=== PATIENT | female | born 1995 | race Caucasian/White ===

== ENCOUNTER 2016-11-16 23:26 | Emergency (ER) | payer OTHER ==
[~2016-11-16] VITALS: Ht 157.5 cm; Wt 79.0 kg
[2016-11-16 23:34] VITALS: TEMP 37; Ht 157.5 cm; Wt 79.0 kg
[2016-11-16] MEDS ORDERED: CEFTRIAXONE SOD INJ 1 GM ADDVIAL IV STA (23:46)
[2016-11-16] MEDS ORDERED: KETOROLAC TROMETHAMINE 30 MG/ML VIAL IV STA (23:46)
[2016-11-17] MEDS ORDERED: CEPHALEXIN 500MG HOME PACK 1 EA BTL PO ONE
[2016-11-17] MEDS ORDERED: XYLOCAINE 1%/SOD BICARB 20 ML VIAL INFIL ONE
[2016-11-17] MEDS ORDERED: SEPTRA DS HOME PACK 1 EA VIAL PO ONE
[2016-11-17 00:03] LABS: BASO % 0.1 %; BASO ABS # 0.01 K/uL (0-0.2); COMPLETE YES; EOS % 0.6 %; HEMATOCRIT 38.9 % (37-47); IG% 0.2 %; LYMPH % 21.6 %; LYMPH ABS # 2.21 K/uL (1.2-3.4); MEAN CELL VOLUME 93.7 fL (80-100); MEAN CORPUSCULAR HEMOGLOBIN 31.8 pg (25-34); MEAN CORPUSCULAR HGB CONC 33.9 g/dl (32-36); MEAN PLATELET VOLUME 10.6 fL (7.4-10.4); MONO % 5.9 %; NEUT % 71.6 %; PLATELET COUNT 302 K/uL (130-400); RED BLOOD COUNT 4.15 M/uL (4.2-5.4); WHITE BLOOD COUNT 10.24 K/uL (4.8-10.8)
[2016-11-17 00:21] LABS: BUN/CREATININE RATIO 17.8 (10-20); CALCIUM 9.3 mg/dl (8.5-10.1); CREATININE 0.79 mg/dl (0.60-1.20); POTASSIUM 3.8 mmol/L (3.5-5.1)
[2016-11-17] MEDS ORDERED: OXYC1TAB3 PO (00:33)
[2016-11-17] MEDS ORDERED: CEPH500C PO (00:33)
[2016-11-17] MEDS ORDERED: ONDA4TAB10 SL (00:33)
[2016-11-17] MEDS ORDERED: SULF800T23 PO (00:33)
[2016-11-17 00:44] LABS: PREG INTERNAL NEGATIVE QC NEG CLEAR BACKGROUND; PREG INTERNAL POSITIVE QC POS CONTROL LINE
[2016-11-17] MEDS ORDERED: ONDANSETRON HOME PACK 4MG OD TAB PO ONE (00:45)
[2016-11-17 00:54] VITALS: BP 110/64; PULSE 88; O2SAT 100
--- NOTE | 2016-11-17 00:54 | EMERGENCY ROOM VISIT NOTE ---
History First contact with patient: 23:39 Chief Complaint: LEG PAIN,LEG INJURY Stated Complaint: LUMP ON INSIDE OF LEG,SEVERE PAIN History of Present Illness The patient is a 21 year old female who presents to the Emergency Room with complaints of infection to the groin area for the past 2 days. Patient does shave her vaginal area. Patient is as a pain as throbbing, ranging in severity 6 out of 10 worse with palpation. Nothing makes it better. Tetanus is current. Patient does not feel at risk for STIs. Patient denies urinary symptoms, vaginal itching or discharge, abdominal pain, vomiting, fever, chills. No other complaint per patient. No history of abscesses in the past. No IV drug abuse. Review of Systems See HPI for pertinent positives & negatives. A total of 10 systems reviewed and were otherwise negative. Past Medical/Surgical History None Social History Smoking Status: Never Smoker Smokeless Tobacco Use: No Drug Use: none Marital Status: single Occupation Status: [employer] student Current/Historical Medications Scheduled Cephalexin Monohydrate (Keflex), 500 MG PO QID Ondasetron Odt (Zofran Odt), 4 MG SL Q6H Sulfa/Trimethoprim (Bactrim Ds 800MG/160MG), 1 TAB PO BID Scheduled PRN Oxycodone Immediate Rel Tab (Roxicodone Ir), 1-2 TAB PO Q4H PRN for Severe Pain Physical Exam Vital Signs Date Time Temp Pulse Resp B/P Pulse Ox O2 Delivery O2 Flow Rate FiO2 11/16/16 23:34 37.0 83 20 133/86 100 Room Air Physical Exam VITALS: Vitals are noted on the nurse's note and reviewed by myself. Vital signs stable. GENERAL: Pleasant female, in no acute distress, nondiaphoretic, well-developed well-nourished. SKIN: Capillary reflex less than 2 seconds. HEENT: Normocephalic. PERRLA. EOMI. Nares patent. Mucous membranes moist. Neck is supple without nuchal rigidity. HEART: Regular rate and rhythm without murmurs gallops or rubs. LUNGS: Clear to auscultation bilaterally without wheezes, rales or rhonchi. No retractions or accessory muscle use. ABDOMEN: Positive bowel sounds x 4. Normal tympanic percussion. Soft, nontender, without masses or organomegaly. Simms sign negative. No guarding or rebound tenderness. exam: Left symphysis pubis with 5 x 4 cm area that is fluctuant concerning for abscess with surrounding erythema and no active drainage. No Bartholin's abscess. No [place]'s glands abscess trimming inspector present MUSCULOSKELETAL: No gross musculoskeletal defects. No pedal edema. No calf tenderness. NEURO: Patient was alert and oriented to person place and time. Normal sensation to light and sharp touch. No focal neurological deficits. Medical Decision & Procedures Laboratory Results 11/16/16 23:55 Red Blood Count 4.15, Mean Corpuscular Volume 93.7, Mean Corpuscular Hemoglobin 31.8, Mean Corpuscular Hemoglobin Concent 33.9, Mean Platelet Volume 10.6, Neutrophils (%) (Auto) 71.6, Lymphocytes (%) (Auto) 21.6, Monocytes (%) (Auto) 5.9, Eosinophils (%) (Auto) 0.6, Basophils (%) (Auto) 0.1, Neutrophils # (Auto) 7.34, Lymphocytes # (Auto) 2.21, Monocytes # (Auto) 0.60, Eosinophils # (Auto) 0.06, Basophils # (Auto) 0.01 11/16/16 23:55 Test 11/16/16 23:55 White Blood Count 10.24 K/uL (4.8-10.8) Red Blood Count 4.15 M/uL (4.2-5.4) Hemoglobin 13.2 g/dL (12.0-16.0) Hematocrit 38.9 % (37-47) Mean Corpuscular Volume 93.7 fL (80-100) Mean Corpuscular Hemoglobin 31.8 pg (25-34) Mean Corpuscular Hemoglobin Concent 33.9 g/dl (32-36) Platelet Count 302 K/uL (130-400) Mean Platelet Volume 10.6 fL (7.4-10.4) Neutrophils (%) (Auto) 71.6 % Lymphocytes (%) (Auto) 21.6 % Monocytes (%) (Auto) 5.9 % Eosinophils (%) (Auto) 0.6 % Basophils (%) (Auto) 0.1 % Neutrophils # (Auto) 7.34 K/uL (1.4-6.5) Lymphocytes # (Auto) 2.21 K/uL (1.2-3.4) Monocytes # (Auto) 0.60 K/uL (0.11-0.59) Eosinophils # (Auto) 0.06 K/uL (0-0.5) Basophils # (Auto) 0.01 K/uL (0-0.2) RDW Standard Deviation 46.0 fL (36.4-46.3) RDW Coefficient of Variation 13.3 % (11.5-14.5) Immature Granulocyte % (Auto) 0.2 % Immature Granulocyte # (Auto) 0.02 K/uL (0.00-0.02) Anion Gap 10.0 mmol/L (3-11) Est Creatinine Clear Calc Drug Dose 108.7 ml/min Estimated GFR () 123.2 Estimated GFR (Non- 106.3 BUN/Creatinine Ratio 17.8 (10-20) Calcium Level 9.3 mg/dl (8.5-10.1) Human Chorionic Gonadotropin, Qual NEG (NEG) Medications Administered Medications (Trade) Dose Ordered Sig/Danny Route Start Time Stop Time Status Last Admin Dose Admin Ketorolac Tromethamine (Toradol Inj) 30 mg NOW STAT IV 11/16/16 23:46 11/16/16 23:48 DC 11/17/16 00:03 30 MG Ceftriaxone Sodium (Rocephin Inj) 1 gm NOW STAT IV 11/16/16 23:46 11/16/16 23:48 DC 11/17/16 00:02 1 GM Procedure Incision & Drainage Indication: Abscess. Location: pubic region Verbal consent was obtained after the risks and benefits were explained, including but not limited to bleeding, scarring, infection, pain, and bone/joint /nerve damage. At this time, the risks of the procedure are less than the risks of NOT performing the procedure. A time out was taken and the correct patient and site identified. The skin was prepped with betadine and a sterile field set. The wound was anesthetized with 10 ml of 1% lidocaine without epinephrine. The abscess cavity was entered with a number 11 blade and copious purulent material expressed. Copious irrigation was performed using normal saline. The wound was explored for foreign bodies and none found. Debridement was not performed. Packing placed and a sterile dressing applied. Detailed wound care instructions and signs and symptoms of worsening infection reviewed with the patient. No complications and the patient tolerated the procedure well. ED Course Prior records reviewed and summarized as above. Triage Nursing notes reviewed. The patient's history was concerning for swelling and redness of the skin. Differential diagnosis: Etiologies such as cellulitis, abscess, MRSA infection, DVT, necrotizing fasciitis, dermatitis, drug eruption, as well as others were entertained.. Physical examination: The physical examination was consistent with cellulitis ER treatment provided: I&D as above, Rocephin, Keflex, Bactrim, Zofran, OxyIR On reassessment the patient felt better. Diagnostics interpreted by me: The labs revealed no leukocytosis. Wound culture pending. Mild hyperglycemia This appears to be abscess with surrounding cellulitis. Patient was started on antibiotics. I&D as above. She was advised wound repacking in 2 days. She is advised to take medications as directed. She is advised return to the immediate for spreading infection, fevers, vomiting, worsening signs or symptoms or as needed. Tetanus is current. She does not feel at risk for any STIs. By the evaluation outlined above emergent etiologies such as necrotizing fasciitis, DVT, as well as others were deemed relatively unlikely. The pt informed about the findings as listed above. All questions were answered and pleased with the treatment. Return instructions were outlined and the patient was discharged in stable condition. Outpatient prescription management: bob BENITEZ Referral: The patient was referred back to primary care physician for follow-up in 2 to 3 days for a recheck of the current condition. Medical Decision As above [place] Drug Monitoring Program Search Results: patient reviewed within database, no issues identified Impression Primary Impression: Abscess of pubic region Departure Information Dispostion Home / Self-Care Condition GOOD Prescriptions Oxycodone Immediate Rel Tab (ROXICODONE IR) 5 Mg Tab 1-2 TAB PO Q4H Y for Severe Pain, #15 TAB Prov: Deepthi Looney .ALLEY 11/17/16 Ondasetron Odt (ZOFRAN ODT) 4 Mg Tab 4 MG SL Q6H, #10 TAB Prov: Deepthi Looney .ALLEY 11/17/16 Cephalexin Monohydrate (Keflex) 500 Mg Cap 500 MG PO QID for 9 Days, #36 CAP Prov: Deepthi Looney .ALLEY 11/17/16 Sulfa/Trimethoprim (Bactrim Ds 800MG/160MG) Tab 1 TAB PO BID for 9 Days, #18 TAB Prov: Deepthi Looney .ALLEY 11/17/16 Forms HOME CARE DOCUMENTATION FORM, School Instructions, Return To School: 1 day IMPORTANT VISIT INFORMATION Patient Instructions A Signature Page, My [facility], ED Abscess IandD Additional Instructions Leave inner dressing in place. Change outer dressing daily. Your blood sugar is slightly high today. Recheck this with the family care or health services in 2 weeks. Cephalexin(Keflex) 500mg: Take one pill four times daily for 10 days for your skin infection. All antibiotics can cause diarrhea. If this occurs and you feel worse or it does not resolve in 1-2 days follow up with your doctor or return to the Emergency Department as this could be signs of serious underlying problems. Any medication can cause an allergic reaction, stop the pills immediately and return to the ER for rash, hives, breathing difficulties, or swelling. Trimethoprim-Sulfamethoxazole(Bactrim DS): Take one pill twice daily for 10 days for your skin infection. All antibiotics can cause diarrhea. If this occurs and you feel worse or it does not resolve in 1-2 days follow up with your doctor or return to the Emergency Department as this could be signs of serious underlying problems. Any medication can cause an allergic reaction, stop the pills immediately and return to the ER for rash, hives, breathing difficulties, or swelling. Zofran(odansetron) tablets 4mg: Take one and allow it to dissolve in your mouth every four to six hours as needed for nausea or vomiting. Oxycodone (OxyIR) 5mg: Take 1-2 pills every four hours for breakthrough pain. Avoid alcohol, operating machinery or dangerous equipment, working on ladders or roofs, DRIVING, or situations where being under the influence may be dangerous. It is recommended to use an [id number] stool softener such as Colace, 100mg twice daily while taking this medication to avoid constipation. Ibuprofen(Motrin, Advil) may be used for fever or pain. Use 600mg every six hours as needed. Take with food. Avoid using more than 2400mg in a 24 hour period. Do not use 2400mg per day for more than three consecutive days without physician direction. Prolonged inappropriate use can lead to stomach upset or ulcers. (AND/OR) Acetaminophen(Tylenol) may be used for fever or pain. Use 1000mg every six hours as needed. Avoid using more than 3000mg in a 24 hour period. Rest and drink plenty of fluids. Continue current medications. Return to the ER for severe pain, persistent fevers, spreading redness, or any worsening of your condition. Follow up with your primary physician within 2-3 days for a recheck of the current condition and wound repacking. School Instructions Return To School: 1 day
--- NOTE | 2016-11-17 15:01 | Pharmacy Progress Note ---
ED Pharmacist Culture FollowUp Date of Service: Nov 17, 2016. Gram stain results from pubic abscess forwarded to me by ED department secretary. Gram stain shows gram + cocci, moderate polys. Deep wound cx is still pending. Patient was seen in ER on 11/17/16 for groin infxn / leg pain. A 5x4cm pubic abscess was discovered. She is s/p I&D w/ wound packing. She was discharged on Bactrim DS + Keflex x9 days. Neg test. This therapy is reasonable given site of infxn, presence of abscess, and gram stain results. No action required at this time. Will await deep wound cx results.
== END 2016-11-17 00:56 | disposition home or self-care (01) ==
LOC: C.EDB 23:29 → C.EDA 11-17 00:56
DX: L02.214 Cutaneous abscess of groin (principal)

== ENCOUNTER 2016-11-21 23:30 | Emergency (ER) | payer OTHER ==
[~2016-11-21] VITALS: Ht 157.5 cm; Wt 78.6 kg
[~2016-11-21 23:30] MED LIST: CEPH500C PO; ONDA4TAB10 SL; OXYC1TAB3 PO; SULF800T23 PO
[2016-11-21 23:37] VITALS: TEMP 36.9; Ht 157.5 cm; Wt 78.6 kg
--- NOTE | 2016-11-22 | EMERGENCY ROOM VISIT NOTE ---
History Report prepared by Rain: Debra Edmondson Under the Supervision of: Dr. Macrina George D.O. First contact with patient: 23:42 Chief Complaint: WOUND RECHECK Stated Complaint: NEEDS DRESSINGS CHANGED History of Present Illness The patient is a 21 year old female who presents to the Emergency Room for a wound recheck after having an abscess drained 4 days ago. The patient states that after she initially had the abscess drained in her groin area and she had the wound repacked 3 days ago. She notes that there was still pus coming out of it. She reports that she was told to come in tonight to have it repacked. The patient states that she was also concerned that the wound was not looking better. She notes that she is on antibiotics. Source of History: patient Onset: 4 days ago Position: other (groin) Timing: constant Note: She notes pus. Review of Systems See HPI for pertinent positives & negatives. A total of 10 systems reviewed and were otherwise negative. Past Medical & Surgical Medical Problems: (1) No Known Active Medical Problems Family History No pertinent family history stated. Social History Smoking Status: Never Smoker Drug Use: none Marital Status: single Occupation Status: [employer] student Current/Historical Medications Scheduled Cephalexin Monohydrate (Keflex), 500 MG PO QID Ondasetron Odt (Zofran Odt), 4 MG SL Q6H Sulfa/Trimethoprim (Bactrim Ds 800MG/160MG), 1 TAB PO BID Scheduled PRN Oxycodone Immediate Rel Tab (Roxicodone Ir), 1-2 TAB PO Q4H PRN for Severe Pain Allergies Coded Allergies: No Known Allergies (Unverified , 11/21/16) Physical Exam Vital Signs Date Time Temp Pulse Resp B/P Pulse Ox O2 Delivery O2 Flow Rate FiO2 11/22/16 00:28 73 18 107/62 100 Room Air 11/21/16 23:37 36.9 78 18 109/68 98 Room Air Physical Exam Genitalia: There is a well-healing abscess cavity noted in the left inguinal canal region. There is no surrounding erythema or edema. There are some slight induration noted but no pain with palpation. Medical Decision & Procedures ED Course 234: Past medical records reviewed. The patient was evaluated in room C7. A complete history and physical exam was performed. The packing was removed from the wound. The wound was explored and appears to be well-healing with no signs of infection. I did place a small amount of packing back into the wound and give the patient very specific instructions on how to care for this wound and allowed to heal by secondary intention. 0007: The patient will be discharged home at this time to remove the current packing in approximately 2 days. She then can clean the area twice a day with soap and water. She can also apply some bacitracin and a sterile dressing. I explained to her that this might take quite some time to heal secondarily. She was encouraged to watch for signs of infection. Medical Decision The patient is a 21 year old female who presents to the ED for a wound recheck. The patient had a wound in her left groin area incised and drained one week ago. She has had the wound repacked couple of times and presents here for a recheck. I did remove the packing. There is no persistent signs of infection. The wound was repacked with a small amount of packing and she should be able to remove packing in 2 days and then do local wound care Impression Primary Impression: Encounter for wound re-check Scribe Attestation The scribe's documentation has been prepared under my direction and personally reviewed by me in its entirety. I confirm that the note above accurately reflects all work, treatment, procedures, and medical decision making performed by me. Departure Information Dispostion Home / Self-Care Referrals No Doctor, Assigned (PCP) Forms HOME CARE DOCUMENTATION FORM, IMPORTANT VISIT INFORMATION, WORK / SCHOOL INSTRUCTIONS Patient Instructions ED Abscess IandD, My [facility] Additional Instructions Limit excessive walking or movement Complete course of antibiotics You may remove the packing in 2 days. Keep the wound clean with antibacterial soap and water. Cover with bacitracin or polysporin and a sterile dressing Return to the ER for a fever, increased pain, or foul smell coming freom wound.
[2016-11-22 00:28] VITALS: BP 107/62; PULSE 73; O2SAT 100
== END 2016-11-22 00:30 | disposition home or self-care (01) ==
LOC: C.EDB 23:31 → C.EDC 11-22 00:30
DX: Z09 Encounter for follow-up examination after completed treatment for conditions other than malignant neoplasm (principal)